=== PATIENT | male | born 1950 | race Caucasian/White ===

== ENCOUNTER → 2017-11-30 | Day surgery (SDC) | payer OTHER ==
[~2017-11-30] VITALS: Ht 175.3 cm; Wt 104.3 kg
[~2017-11-30] MED LIST: FINASTERIDE5 MG PO; LIDOCAINE 1% W/EPINEPHRINE 20 ML VIAL ONE; LOSARTAN-HCTZ1 EACH PO; TAMSULOSIN HCL0.4 MG PO
[2017-11-30 06:45] VITALS: BP 134/76
[2017-11-30 08:35] VITALS: BP 133/73
--- NOTE | 2017-11-30 09:29 | Operative Report ---
DATE OF PROCEDURE: November 30, 2017 INDICATIONS: Palpitations with nondiagnostic rough rice grader. PROCEDURE PERFORMED: Insertable loop recorder. Left anterior chest wall was anesthetized using subcutaneous lidocaine. A [employer] LINQ, serial number [id number] was without complications. Skin approximated using Dermabond. Patient discharged home same day. Job#: [id number]
== END | disposition home or self-care (01) ==
LOC: CATH LAB 08:36
PROVIDERS: ATTEND Internal Medicine Interventional Cardiology
DX: R00.2 Palpitations (principal); R07.9 Chest pain, unspecified; R03.0 Elevated blood-pressure reading, without diagnosis of hypertension; J45.909 Unspecified asthma, uncomplicated; Z68.33 Body mass index [BMI] 33.0-33.9, adult
CPT/HCPCS: 33282; C1764